=== PATIENT | male | born 1970 | race Caucasian/White ===

== ENCOUNTER → 2024-04-03 08:28 | Outpatient (BNVA) | payer OTHER, SELFPAY | PROVIDERS: Visit Provider Physician Assistant | DX: M54.6 Pain in thoracic spine (principal); M54.50 Low back pain, unspecified | CPT/HCPCS: 72070; 74018; 80048; 99204; J1885 ==

== ENCOUNTER → 2024-04-08 09:16 | Outpatient (BNVA) | payer OTHER, SELFPAY | PROVIDERS: Visit Provider Registered Nurse | DX: S29.012D Strain of muscle and tendon of back wall of thorax, subsequent encounter (principal); W18.30XD Fall on same level, unspecified, subsequent encounter; Z02.79 Encounter for issue of other medical certificate | CPT/HCPCS: 99213 ==